=== PATIENT | male | born 1990 | race Caucasian/White ===

== ENCOUNTER 2018-07-16 07:56 | Day surgery (SDC) | payer OTHER ==
[2018-07-15 12:04] LABS: BASOPHIL % 0.3 % (0.0-0.2); EOSINOPHIL # 0.1 10^3/uL (0.0-0.2); HEMOGLOBIN 15.5 g/dL (13.9-16.3); LYMPHOCYTES # 1.9 10^3/uL (1.0-4.8); LYMPHOCYTES % 29.1 % (24.0-44.0); MEAN CELL HGB 30.3 pg (26-34); MEAN CELL HGB CONCENTRATION 35.3 g/dL (33-37); MEAN CORP VOLUME 85.7 fL (78-100); MONOCYTES # 0.5 10^3/uL (0.3-0.8); NEUTROPHIL # 3.9 10^3/uL (1.8-7.7); NEUTROPHILS % 60.4 % (41.0-85.0); RED CELL DISTRIBUTION WIDTH 12.8 % (11.5-14.5); WHITE BLOOD CELL 6.5 10^3/uL (4.5-11.0)
[2018-07-15 12:06] VITALS: BP 115/80
[2018-07-15 12:13] LABS: CARBON DIOXIDE 28.2 mmol/L (20.0-32)
[2018-07-16] VITALS (7 sets, daily range): BP systolic 115–129; BP diastolic 50–81
[~2018-07-16] VITALS: Ht 180.3 cm; Wt 78.3 kg
[~2018-07-16 07:56] MED LIST: AMPH15CA6 PO; DECADRON IV ONE; DIPRIVAN IV ONE; LACTATED RINGERS 1,000 ML ONE; LEVAQUIN 100 ML IV ONE; LIDOCAINE 2% VIAL SQ ONE; NAPR-636 PO; ONDA4TAB13 PO; SUBLIMAZE IV ONE; TAMS-14 PO; TORADOL IV ONE; TRAM50TA PO; VERSED IV ONE; ZOFRAN IV ONE
[2018-07-16] MEDS ORDERED: SODIUM CHLORIDE IR ONE (10:36)
[2018-07-16] MEDS ORDERED: NS 3000ML IRR IR ONE (10:36)
[2018-07-16] MEDS ORDERED: LACTATED RINGERS 1,000 ML ONE (11:53)
[2018-07-16] MEDS ORDERED: BENADRYL IV PRN (12:00)
[2018-07-16] MEDS ORDERED: LACTATED RINGERS 1,000 ML IV SCH (12:00)
[2018-07-16] MEDS ORDERED: SUBLIMAZE IV PRN (12:00)
[2018-07-16] MEDS ORDERED: DEMEROL IV PRN (12:00)
[2018-07-16] MEDS ORDERED: NORCO 7.5MG PO PRN (12:00)
[2018-07-16] MEDS ORDERED: ZOFRAN IV PRN (12:00)
[2018-07-16] MEDS ORDERED: PHENERGAN IV PRN (12:00)
[2018-07-16] MEDS ORDERED: CIPR500T86 PO (12:03)
--- NOTE | 2018-07-16 12:23 | OPH ---
DATE OF SURGERY: 07/16/2018 PREOPERATIVE DIAGNOSIS: Calculus, left ureter. FINAL DIAGNOSIS: Calculus, left ureter with left hydronephrosis. DESCRIPTION OF PROCEDURE: The patient was brought to cystoscopy room and was put in supine position on the cystoscopy table. After the patient was given a satisfactory and adequate LMA general anesthesia, the patient was placed in the lithotomy position. The genitalia was then prepped and draped aseptically in the usual manner. First, a 23-Macedonian cystoscope was inserted per urethra up to the bladder. With the use of the right angle lens, the bladder was visualized. There was no tumor, no calculi, no ulcerations seen. A left retrograde was initially performed by inserting a 7-Macedonian ureteral catheter in the left orifice and injected with the dye and it revealed a calculus in the left ureter level of L3 with hydronephrosis. After that, this ureteral catheter was removed and then a double J left ureteral stent was then inserted from the left orifice all the way to the left kidney. The bladder was then emptied with fluid. Instrument was removed. The patient was then awakened, was transferred to the recovery room in stable condition. Antolin Goodwin MD DR: MODESTA/timmy JOB# [id number]
--- NOTE | 2018-07-16 15:43 | DIREP ---
PROCEDURE:XRAY UROGRAPHY RETROGRADE COMPARISON:None. INDICATIONS:STONE LOCATION, 10 IMAGES, 10CC ONMIPAQUE 240 USED, 45.99mGy, 229.9 second fluoro TECHNIQUE:10 intraoperative views of the abdomen were performed during the left-sided retrograde pyelogram. Fluoroscopy time performed was 2 minutes and 29.9 seconds. 10 cc of 240% Omnipaque was injected. FINDINGS:There is a calcific density positioned on the left at the level of the 3rd transverse process consistent with a calculus with a filling defect seen within the opacified left ureter. Subsequent films show placement of a left ureteral stent in good position. CONCLUSION:Placement of a left ureteral stent in good position for a calculus in the mid left ureter. Dictated by: Damaso Ruff M.D. on 07/16/2018 at 03:37 PM
[2018-07-24] MEDS ORDERED: ACET-685 PO (08:42)
== END 2018-07-16 13:04 | disposition home or self-care (01) ==
LOC: SDC 07:56
PROVIDERS: ATTEND Urology
DX: N13.2 Hydronephrosis with renal and ureteral calculous obstruction (principal); F90.9 Attention-deficit hyperactivity disorder, unspecified type; Z72.89 Other problems related to lifestyle; Z79.2 Long term (current) use of antibiotics; Z98.890 Other specified postprocedural states; Z79.899 Other long term (current) drug therapy; Z91.09 Other allergy status, other than to drugs and biological substances; Z82.49 Family history of ischemic heart disease and other diseases of the circulatory system; Z80.8 Family history of malignant neoplasm of other organs or systems; Z83.3 Family history of diabetes mellitus
CPT/HCPCS: 36415; 52332; 74420; 80051; 82565; 84520; 85025; 85610; 85730; A4217 ×2; J1100; J1885; J1956; J2001; J2250; J2405; J3010; J3490; J7120 ×2; Q9966; 76000; C1769; C2617

== ENCOUNTER 2018-07-18 07:00 | Day surgery (SDC) | payer OTHER ==
[2018-07-18] VITALS (7 sets, daily range): BP systolic 110–125; BP diastolic 71–91
[~2018-07-18] VITALS: Ht 180.3 cm; Wt 78.3 kg
[~2018-07-18 07:00] MED LIST changes: +CIPR500T86 PO; -DECADRON IV ONE; +DECADRON ONE; +LASIX ONE; +LIDOCAINE 2% VIAL ONE; -LIDOCAINE 2% VIAL SQ ONE; +NS 3000ML IRR IR ONE; +SODIUM CHLORIDE IR ONE; -SUBLIMAZE IV ONE; +SUBLIMAZE ONE; -TORADOL IV ONE; +TORADOL ONE; -VERSED IV ONE; +VERSED ONE; -ZOFRAN IV ONE; +ZOFRAN ONE
[2018-07-18] MEDS ORDERED: PHENERGAN IV PRN (07:30)
[2018-07-18] MEDS ORDERED: BENADRYL IV PRN (07:30)
[2018-07-18] MEDS ORDERED: SUBLIMAZE IV PRN (07:30)
[2018-07-18] MEDS ORDERED: ZOFRAN IV PRN (07:30)
[2018-07-18] MEDS: LACTATED RINGERS 1,000 ML IV SCH ×2 (07:45→09:52)
[2018-07-18] MEDS ORDERED: NORCO 5MG PO PRN (09:30)
[2018-07-18] MEDS ORDERED: LASIX IV SCH (09:30)
[2018-07-18] MEDS ORDERED: LACTATED RINGERS 1,000 ML IV SCH (09:30)
[2018-07-18] MEDS ORDERED: LACTATED RINGERS 1,000 ML ONE (09:48)
--- NOTE | 2018-07-19 00:41 | OPH ---
DATE OF SURGERY: 07/18/2018 PREOPERATIVE DIAGNOSIS: Calculus, left upper ureter with an indwelling stent. FINAL DIAGNOSIS: Calculus, left upper ureter with an indwelling stent. PROCEDURE: Left ESWL. DESCRIPTION OF PROCEDURE: The patient was brought to the lithotripsy room, was put in supine position on lithotripsy table. A preop KUB was initially performed, which revealed stones in the upper ureter at the level of L3 with the presence of indwelling ureteral stent. After localization of the stone with the use of fluoroscopy and ultrasound and after the patient was given LMA general anesthesia, a left ESWL was then performed using a Dornier Compact Delta II Lithotripter. A total of 2000 shockwaves were delivered to the stone in the left ureter under ultrasound guidance and fluoroscopy. After fragmentation of the stone as noted in the ultrasound, procedure was terminated. The patient was awakened, was transferred to the recovery room in stable condition. Antolin Goodwin MD DR: MODESTA/timmy JOB# [id number]
== END 2018-07-18 10:34 | disposition home or self-care (01) ==
LOC: SDC 07:00
PROVIDERS: ATTEND Urology
DX: N20.1 Calculus of ureter (principal); R10.9 Unspecified abdominal pain; Z96.0 Presence of urogenital implants; F90.9 Attention-deficit hyperactivity disorder, unspecified type; Z79.899 Other long term (current) drug therapy; Z98.890 Other specified postprocedural states
CPT/HCPCS: 50590; J1100; J1956; J2001; J2250; J2405; J3010; J3490; J7120 ×2; A4217; J1885; J1940

== ENCOUNTER → 2018-07-24 | Day surgery (SDC) | payer OTHER ==
[2018-07-24] VITALS (9 sets, daily range): BP systolic 99–133; BP diastolic 54–84
[~2018-07-24] VITALS: Ht 180.3 cm; Wt 78.3 kg
[~2018-07-24] MED LIST changes: +ACET-685 PO; +DILAUDID IV PRN; +LACTATED RINGERS 1,000 ML IV SCH; -LACTATED RINGERS 1,000 ML ONE; -LASIX ONE; -LEVAQUIN 100 ML IV ONE; -LIDOCAINE 2% VIAL ONE; +NORCO 7.5MG PO PRN; +PRECEDEX IV ONE; +SUBLIMAZE IV PRN; +ZOFRAN IV PRN
--- NOTE | 2018-07-24 09:33 | OPH ---
DATE OF SURGERY: 07/24/2018 PREOPERATIVE DIAGNOSIS: Calculus, left ureter. FINAL DIAGNOSIS: Calculus, left ureter. PROCEDURES: Cystoscopy, removal of left ureteral stent, ureteroscopy with stone extraction. DESCRIPTION OF PROCEDURE: The patient was brought to the cystoscopy room, was put in supine position on the cystoscopy table. After the patient was given a satisfactory and adequate LMA general anesthesia, the patient was placed in the lithotomy position. The genitalia was then prepped and draped aseptically in the usual manner. First, a 23-Irish cystoscope was entered per urethra up to the bladder. With the right angle lens, the bladder was visualized. There was no tumor, no calculi, no ulcerations seen. The left ureteral stent was then removed and replaced with a guidewire and then the cystoscope was removed and a 7-Irish semirigid short ureteroscope was inserted per urethra up to the bladder and then up to the left orifice all the way to the upper ureter. The area was visualized and there was some soft tissue there, which probably a pulverized stone, which was then extracted. After this was done, there was no other evidence of stone or obstruction noted in the left ureter. So, the left ureteroscope and the guidewire were removed. A cystoscope was reinserted into the bladder and the bladder was emptied with fluid and after that, the cystoscope was removed. Procedure was terminated. The patient was awakened, was transferred to the recovery room in stable condition. Antolin Goodwin MD DR: MODESTA/timmy JOB# [id number]
--- NOTE | 2018-07-24 13:13 | DIREP ---
PROCEDURE:XRAY FLUOROSCOPY COMPARISON:[facility], , XRAY ABDOMEN SINGLE VW, 07/18/2018, 06:35 AM. INDICATIONS:STENT REMOVAL, 22.75 mGy, 116.3 seconds fluoro, 7 images TECHNIQUE:7 intraoperative views of the abdomen were performed. Fluoroscopy time performed was 116.3 seconds. FINDINGS:Multiple intraoperative views demonstrate interval removal of a left ureteral stent. No definite left ureteral calculus is seen. CONCLUSION:Interval removal of left ureteral stent. Dictated by: Damaso Ruff M.D. on 07/24/2018 at 01:10 PM
== END | disposition home or self-care (01) ==
LOC: SDC 07-18 07:00
PROVIDERS: ATTEND Urology
DX: N20.1 Calculus of ureter (principal); F90.9 Attention-deficit hyperactivity disorder, unspecified type; Z91.048 Other nonmedicinal substance allergy status; Z79.899 Other long term (current) drug therapy; Z79.2 Long term (current) use of antibiotics; Z72.89 Other problems related to lifestyle; Z80.8 Family history of malignant neoplasm of other organs or systems; Z82.49 Family history of ischemic heart disease and other diseases of the circulatory system; Z83.3 Family history of diabetes mellitus
CPT/HCPCS: 52352; A4217 ×2; J1100; J1885; J2250; J2405; J3010; J3490; 76000; C1894